=== PATIENT | male | born 1990 | race Caucasian/White ===

== ENCOUNTER 2019-06-12 12:00 | Outpatient (CLI) | payer OTHER, SELFPAY | END 2019-06-12 12:01 | disposition home or self-care (01) | LOC: SLEEP 06-14 12:47 | PROVIDERS: Visit Provider Family Medicine | DX: G47.33 Obstructive sleep apnea (adult) (pediatric) (principal) | CPT/HCPCS: G0399 ==

== ENCOUNTER 2019-09-17 14:16 | Emergency (ER) | payer OTHER, SELFPAY ==
[2019-09-17 14:26] VITALS: BP 146/87; PULSE 68; RESP 18; TEMP 36.9; O2SAT 99; BMI 27.3
--- NOTE | 2019-09-17 14:37 | ECG_ITS ---
Measurements Intervals [place] Rate: 69 P: 5 KS: 146 QRS: 36 QRSD: 108 T: 12 QT: 377 QTc: 404 SINUS RHYTHM NONSPECIFIC T-WAVE ABNORMALITY INTERPRETATION BASED ON A DEFAULT AGE OF 40 YEARS No previous ECG available for comparison Electronically Signed On 09-17-2019 20:06:27 CDT by Priya Saxena M.D. [email or web address]
[2019-09-17 14:48] LABS: Basophils # 0.1 10^3/uL (0.0-0.1); Basophils % 0.8 %; Eosinophils # 0.4 10^3/uL (0.0-0.8); Eosinophils % 6.5 %; Hematocrit 44.5 % (42.0-52.0); Hemoglobin 14.6 g/dL (11.7-16.6); Lymphocytes # 2.4 10^3/uL (0.8-4.8); Lymphocytes % 36.5 %; Mean Corpuscular HGB Conc 32.8 g/dL (30.0-36.0); Mean Corpuscular Volume 88.3 fL (80-94); Mean Platelet Volume 9.2 fL (7.4-10.4); Monocytes # 0.8 10^3/uL (0.2-0.9); Monocytes % 12.7 %; Neutrophils # 2.8 10^3/uL (1.8-7.7); Neutrophils % 43.3 %; Nucleated Red Blood Cells % 0 %; Platelet Count 351 10^3/cmm (130-400); Red Blood Count 5.04 10^6/uL (4.1-5.3); White Blood Count 6.5 10^3/uL (4.0-10.0)
[2019-09-17 15:02] LABS: INR 0.95 (0.8-1.2)
[2019-09-17 15:03] LABS: Partial Thromboplastin Time 31.2 SECONDS (23.9-36.7)
[2019-09-17 15:06] LABS: Alanine Aminotransferase 23 U/L (0-41); Albumin Level 4.6 g/dL (3.5-5.2); Alkaline Phosphatase 91 IU/L (40-130); Anion Gap 15.9 (5-19); Aspartate Amino Transferase 19 U/L (0-40); Blood Urea Nitrogen 12 mg/dL (6-20); Calcium 9.1 mg/dL (8.5-10.5); Carbon Dioxide 24 mmol/L (22-29); Chloride 102 mmol/L (98-107); Globulin 2.8 g/dL (1.3-4.6); Glucose 110 mg/dL (65-115); Magnesium 2.4 mg/dL (1.7-2.3); Osmolality Calculated 283 mOsm/kg (285-295); Potassium 3.9 mmol/L (3.5-5.1); Sodium 138 mmol/L (136-145); Total Bilirubin 0.5 mg/dL (0.15-1.2); Total Protein 7.4 g/dL (6.6-8.7)
[2019-09-17 15:08] LABS: Troponin(5th) Baseline 6 ng/mL (0-15)
[2019-09-17 15:16] VITALS: BP 137/67; PULSE 76; RESP 17; O2SAT 98
--- NOTE | 2019-09-17 15:30 | ED_ITS ---
Documented by User: Simba Doe DO 09/17/19 15:31 HPI - Chest Pain General: Chief Complaint: Chest Pain Stated Complaint: CP, dizzy, blurry vision Time Seen by Provider: 09/17/19 15:29 [facility] ED PFSH: Social History Smoking and tobacco status: never smoked Course Vital Signs: Vital signs: Vital Signs Temperature 98.5 F 09/17/19 14:26 Pulse Rate 76 09/17/19 15:16 Respiratory Rate 18 09/17/19 17:55 Blood Pressure 137/67 09/17/19 15:16 Pulse Oximetry 97 09/17/19 17:55 MDM - Chest Pain Lab Data: Labs: Lab Results 09/17/19 09/17/19 09/17/19 Range/Units 14:42 14:42 14:42 WBC 6.5 (4.0-10.0) 10^3/ uL RBC 5.04 (4.1-5.3) 10^6/u L Hgb 14.6 (11.7-16.6) g/dL Hct 44.5 (42.0-52.0) % MCV 88.3 (80-94) fL MCH 29.0 (28.0-34.0) pg MCHC 32.8 (30.0-36.0) g/dL RDW 12.0 L (12.1-15.1) % Plt Count 351 (130-400) 10^3/c mm MPV 9.2 (7.4-10.4) fL Neut % (Auto) 43.3 % Lymph % (Auto) 36.5 % [place] % (Auto) 12.7 % Eos % (Auto) 6.5 % Baso % (Auto) 0.8 % Neut # (Auto) 2.8 (1.8-7.7) 10^3/u L Lymph # (Auto) 2.4 (0.8-4.8) 10^3/u L [place] # (Auto) 0.8 (0.2-0.9) 10^3/u L Eos # (Auto) 0.4 (0.0-0.8) 10^3/u L Baso # (Auto) 0.1 (0.0-0.1) 10^3/u L Nucleated RBC % (a uto) 0 % Nucleated RBCs # 0.0 /100WBC PT 13.00 (10.5-13.3) SECO NDS INR 0.95 (0.8-1.2) APTT 31.2 (23.9-36.7) SECO NDS Sodium 138 (136-145) mmol/L Potassium 3.9 (3.5-5.1) mmol/L Chloride 102 (98-107) mmol/L Carbon Dioxide 24 (22-29) mmol/L Anion Gap 15.9 (5-19) BUN 12 (6-20) mg/dL Creatinine 0.8 (0.7-1.2) mg/dL GFR Calculation 116.0 (90-130) mL/min Glucose 110 (65-115) mg/dL Calculated Osmolal ity 283 L (285-295) mOsm/k g Calcium 9.1 (8.5-10.5) mg/dL Magnesium 2.4 H (1.7-2.3) mg/dL Total Bilirubin 0.5 (0.15-1.2) mg/dL AST 19 (0-40) U/L ALT 23 (0-41) U/L Alkaline Phosphata se 91 (40-130) IU/L Troponin T Baselin e (0-15) ng/mL Troponin T 120 Min lower [place] (0-15) ng/mL Delta Troponin T (0-10) ABS# Total Protein 7.4 (6.6-8.7) g/dL Albumin 4.6 (3.5-5.2) g/dL Globulin 2.8 (1.3-4.6) g/dL Lipase (13-60) U/L 09/17/19 09/17/19 09/17/19 Range/Units 14:42 16:49 16:49 WBC (4.0-10.0) 10^3/ uL RBC (4.1-5.3) 10^6/u L Hgb (11.7-16.6) g/dL Hct (42.0-52.0) % MCV (80-94) fL MCH (28.0-34.0) pg MCHC (30.0-36.0) g/dL RDW (12.1-15.1) % Plt Count (130-400) 10^3/c mm MPV (7.4-10.4) fL Neut % (Auto) % Lymph % (Auto) % [place] % (Auto) % Eos % (Auto) % Baso % (Auto) % Neut # (Auto) (1.8-7.7) 10^3/u L Lymph # (Auto) (0.8-4.8) 10^3/u L [place] # (Auto) (0.2-0.9) 10^3/u L Eos # (Auto) (0.0-0.8) 10^3/u L Baso # (Auto) (0.0-0.1) 10^3/u L Nucleated RBC % (a uto) % Nucleated RBCs # /100WBC PT (10.5-13.3) SECO NDS INR (0.8-1.2) APTT (23.9-36.7) SECO NDS Sodium (136-145) mmol/L Potassium (3.5-5.1) mmol/L Chloride (98-107) mmol/L Carbon Dioxide (22-29) mmol/L Anion Gap (5-19) BUN (6-20) mg/dL Creatinine (0.7-1.2) mg/dL GFR Calculation (90-130) mL/min Glucose (65-115) mg/dL Calculated Osmolal ity (285-295) mOsm/k g Calcium (8.5-10.5) mg/dL Magnesium (1.7-2.3) mg/dL Total Bilirubin (0.15-1.2) mg/dL AST (0-40) U/L ALT (0-41) U/L Alkaline Phosphata se (40-130) IU/L Troponin T Baselin e 6 (0-15) ng/mL Troponin T 120 Min lower [place] 6.00 (0-15) ng/mL Delta Troponin T 0 (0-10) ABS# Total Protein (6.6-8.7) g/dL Albumin (3.5-5.2) g/dL Globulin (1.3-4.6) g/dL Lipase 27 (13-60) U/L Discharge Plan Discharge Patient Disposition: Home, Self-Care Clinical Impression: Atypical chest pain Abdominal pain Qualifiers: Abdominal location: epigastric Qualified Code(s): R10.13 - Epigastric pain Condition: Stable Prescriptions: [place] 5-325 mg tablet 1 tab PO Q6H PRN (Reason: pain) Qty: 10 RF: 0 Zofran 4 mg tablet 4 mg PO QID PRN (Reason: nausea and vomiting) Qty: 14 RF: 0 Discharge Orders: Discharge Order (Routine); Ordered 09/17/19 Ordered By: Sully Carr Referrals: Primo Fraga MD [Primary Care Provider] - 4-7 days Discharge Diet: Advance as tolerated Discharge Activity: Resume usual activity Patient Instructions: Abdominal Pain (ED) 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[employer] Documented by User: Sully Carr MD 09/17/19 18:24 HPI - Chest Pain General: Chief Complaint: Chest Pain Stated Complaint: CP, dizzy, blurry vision Time Seen by Provider: 09/17/19 15:29 [facility] ED PFSH: Social History Smoking and tobacco status: never smoked Course Vital Signs: Vital signs: Vital Signs Temperature 98.5 F 09/17/19 14:26 Pulse Rate 76 09/17/19 15:16 Respiratory Rate 18 09/17/19 17:55 Blood Pressure 137/67 09/17/19 15:16 Pulse Oximetry 97 09/17/19 17:55 MDM - Chest Pain MDM Narrative: Medical decision making narrative: Patient presents here with abdominal pain along with atypical chest pain. I took patient over from Dr. Thibodeaux and CT scan and ultrasound are both negative. Patient is well-appearing here and he is stable for discharge. He is to follow-up with his primary care doctor in 3 to 5 days and return if worsening. He has no signs of acute coronary cause for his pain or pulmonary embolism. Lab Data: Labs: Lab Results 09/17/19 09/17/1920 Range/Units 14:42 14:42 14:42 WBC 6.5 (4.0-10.0) 10^3/ uL RBC 5.04 (4.1-5.3) 10^6/u L Hgb 14.6 (11.7-16.6) g/dL Hct 44.5 (42.0-52.0) % MCV 88.3 (80-94) fL MCH 29.0 (28.0-34.0) pg MCHC 32.8 (30.0-36.0) g/dL RDW 12.0 L (12.1-15.1) % Plt Count 351 (130-400) 10^3/c mm MPV 9.2 (7.4-10.4) fL Neut % (Auto) 43.3 % Lymph % (Auto) 36.5 % [place] % (Auto) 12.7 % Eos % (Auto) 6.5 % Baso % (Auto) 0.8 % Neut # (Auto) 2.8 (1.8-7.7) 10^3/u L Lymph # (Auto) 2.4 (0.8-4.8) 10^3/u L [place] # (Auto) 0.8 (0.2-0.9) 10^3/u L Eos # (Auto) 0.4 (0.0-0.8) 10^3/u L Baso # (Auto) 0.1 (0.0-0.1) 10^3/u L Nucleated RBC % (a uto) 0 % Nucleated RBCs # 0.0 /100WBC PT 13.00 (10.5-13.3) SECO NDS INR 0.95 (0.8-1.2) APTT 31.2 (23.9-36.7) SECO NDS Sodium 138 (136-145) mmol/L Potassium 3.9 (3.5-5.1) mmol/L Chloride 102 (98-107) mmol/L Carbon Dioxide 24 (22-29) mmol/L Anion Gap 15.9 (5-19) BUN 12 (6-20) mg/dL Creatinine 0.8 (0.7-1.2) mg/dL GFR Calculation 116.0 (90-130) mL/min Glucose 110 (65-115) mg/dL Calculated Osmolal ity 283 L (285-295) mOsm/k g Calcium 9.1 (8.5-10.5) mg/dL Magnesium 2.4 H (1.7-2.3) mg/dL Total Bilirubin 0.5 (0.15-1.2) mg/dL AST 19 (0-40) U/L ALT 23 (0-41) U/L Alkaline Phosphata se 91 (40-130) IU/L Troponin T Baselin e (0-15) ng/mL Troponin T 120 Min lower [place] (0-15) ng/mL Delta Troponin T (0-10) ABS# Total Protein 7.4 (6.6-8.7) g/dL Albumin 4.6 (3.5-5.2) g/dL Globulin 2.8 (1.3-4.6) g/dL Lipase (13-60) U/L 09/17/19 09/17/19 09/17/19 Range/Units 14:42 16:49 16:49 WBC (4.0-10.0) 10^3/ uL RBC (4.1-5.3) 10^6/u L Hgb (11.7-16.6) g/dL Hct (42.0-52.0) % MCV (80-94) fL MCH (28.0-34.0) pg MCHC (30.0-36.0) g/dL RDW (12.1-15.1) % Plt Count (130-400) 10^3/c mm MPV (7.4-10.4) fL Neut % (Auto) % Lymph % (Auto) % [place] % (Auto) % Eos % (Auto) % Baso % (Auto) % Neut # (Auto) (1.8-7.7) 10^3/u L Lymph # (Auto) (0.8-4.8) 10^3/u L [place] # (Auto) (0.2-0.9) 10^3/u L Eos # (Auto) (0.0-0.8) 10^3/u L Baso # (Auto) (0.0-0.1) 10^3/u L Nucleated RBC % (a uto) % Nucleated RBCs # /100WBC PT (10.5-13.3) SECO NDS INR (0.8-1.2) APTT (23.9-36.7) SECO NDS Sodium (136-145) mmol/L Potassium (3.5-5.1) mmol/L Chloride (98-107) mmol/L Carbon Dioxide (22-29) mmol/L Anion Gap (5-19) BUN (6-20) mg/dL Creatinine (0.7-1.2) mg/dL GFR Calculation (90-130) mL/min Glucose (65-115) mg/dL Calculated Osmolal ity (285-295) mOsm/k g Calcium (8.5-10.5) mg/dL Magnesium (1.7-2.3) mg/dL Total Bilirubin (0.15-1.2) mg/dL AST (0-40) U/L ALT (0-41) U/L Alkaline Phosphata se (40-130) IU/L Troponin T Baselin e 6 (0-15) ng/mL Troponin T 120 Min lower [place] 6.00 (0-15) ng/mL Delta Troponin T 0 (0-10) ABS# Total Protein (6.6-8.7) g/dL Albumin (3.5-5.2) g/dL Globulin (1.3-4.6) g/dL Lipase 27 (13-60) U/L Imaging Data^: US: Radiologist's impression: [id number] Order #: [id number] Report Status: Finalized Reason: [place] [address] Ultrasound Report Signed Patient: Matthew Mehta Unit #: [id number] : 1990 Age/Sex: 29 / M ADM Date: 09/17/19 Loc: ER Room/Bed: Attending Dr: Ordering Provider/Ordering MD: Simba Doe DO Date of Service: 09/17/19 Procedure(s): US gall bladder [id number] Accession Number(s): [id number] Report Number: [id number] PROCEDURE INFORMATION: Exam: US Abdomen Limited, Right Upper Quadrant Exam date and time: 09/17/2019 5:25 PM Age: 29 years old Clinical indication: Abdominal pain; Epigastric; Additional info: Abd pain TECHNIQUE: Imaging protocol: Real-time ultrasound of the abdomen with image documentation. Examination was focused on the right upper quadrant. COMPARISON: No relevant prior studies available. FINDINGS: Liver: The liver is mildly hyperechoic and of normal size measuring 14.3 cm. Gallbladder: 4 mm gallbladder polyp. No gallstones. The gallbladder wall thickness is 1.7 mm. Common bile duct: CBD 3.1 mm. Pancreas: Visualized pancreas is unremarkable. Right kidney: Normal. No mass. No hydronephrosis. Intraperitoneal space: No ascites. US/US gall bladder [id number] IMPRESSION: 1. Small gallbladder polyp. No evidence for cholecystitis. 2. Mildly hyperechoic liver likely indicates fatty infiltration. CT Abd/Pel: Attestation: I personally reviewed and interpreted this imaging study as follows: Radiologist's impression: [place] [address] CT Scan Report Signed Patient: Matthew Mehta Unit #: [id number] : 1990 Age/Sex: 29 / M ADM Date: 09/17/19 Loc: ER Room/Bed: Attending Dr: Ordering Provider/Ordering MD: Simba Doe DO Date of Service: 09/17/19 Procedure(s): CT abdomen pelvis w con* [id number] Accession Number(s): [id number] Report Number: [id number] PROCEDURE INFORMATION: Exam: CT Abdomen And Pelvis With Contrast Exam date and time: 09/17/2019 4:32 PM Age: 29 years old Clinical indication: Abdominal pain; Epigastric; Additional info: Abd pain TECHNIQUE: Imaging protocol: Computed tomography of the abdomen and pelvis with intravenous contrast. Radiation optimization: All CT scans at this facility use at least one of these dose optimization techniques: automated exposure control; mA and/or kV adjustment per patient size (includes targeted exams where dose is matched to clinical indication); or iterative reconstruction. Contrast material: OMNI 300; Contrast volume: 95 ml; Contrast route: LT AC; COMPARISON: US gall bladder [id number] 09/17/2019 5:15 PM RADIATION DOSE METRICS: Total DLP: 754.22 mGy-cm FINDINGS: Liver: Normal. No mass. Gallbladder and bile ducts: Normal. No calcified stones. No ductal dilation. Pancreas: Normal. No ductal dilation. Spleen: Normal. No splenomegaly. Adrenals: Normal. No mass. Kidneys and ureters: Normal. No hydronephrosis. Stomach and bowel: Small scattered air-fluid levels within the proximal to mid small bowel. No transition point or obstruction. No visible wall thickening. The colon and stomach are unremarkable. Appendix: The appendix is normal. Intraperitoneal space: Unremarkable. No free air. No significant fluid collection. Vasculature: Unremarkable. No abdominal aortic aneurysm. Lymph nodes: Unremarkable. No enlarged lymph nodes. Bladder: Unremarkable as visualized. Reproductive: Unremarkable as visualized. Bones/joints: Chronic bilateral L5 pars fractures with minimal subluxation. Soft tissues: Unremarkable. CT/CT abdomen pelvis w con* [id number] IMPRESSION: 1. Small air-fluid levels in the small bowel could represent mild ileus or enteritis. 2. Otherwise no acute abnormality identified in the abdomen or pelvis. Discharge Plan Discharge Patient Disposition: Home, Self-Care Clinical Impression: Atypical chest pain Abdominal pain Qualifiers: Abdominal location: epigastric Qualified Code(s): R10.13 - Epigastric pain Condition: Stable Prescriptions: [place] 5-325 mg tablet 1 tab PO Q6H PRN (Reason: pain) Qty: 10 RF: 0 Zofran 4 mg tablet 4 mg PO QID PRN (Reason: nausea and vomiting) Qty: 14 RF: 0 Discharge Orders: Discharge Order (Routine); Ordered 09/17/19 Ordered By: Sully Carr Referrals: Primo Fraga MD [Primary Care Provider] - 4-7 days Discharge Diet: Advance as tolerated Discharge Activity: Resume usual activity Patient Instructions: Abdominal Pain (ED) 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
--- NOTE | 2019-09-17 16:19 | CTR_ITS ---
PROCEDURE INFORMATION: Exam: CT Abdomen And Pelvis With Contrast Exam date and time: 09/17/2019 4:32 PM Age: 29 years old Clinical indication: Abdominal pain; Epigastric; Additional info: Abd pain TECHNIQUE: Imaging protocol: Computed tomography of the abdomen and pelvis with intravenous contrast. Radiation optimization: All CT scans at this facility use at least one of these dose optimization techniques: automated exposure control; mA and/or kV adjustment per patient size (includes targeted exams where dose is matched to clinical indication); or iterative reconstruction. Contrast material: OMNI 300; Contrast volume: 95 ml; Contrast route: LT AC; COMPARISON: US gall bladder [id number] 09/17/2019 5:15 PM RADIATION DOSE METRICS: Total DLP: 754.22 mGy-cm FINDINGS: Liver: Normal. No mass. Gallbladder and bile ducts: Normal. No calcified stones. No ductal dilation. Pancreas: Normal. No ductal dilation. Spleen: Normal. No splenomegaly. Adrenals: Normal. No mass. Kidneys and ureters: Normal. No hydronephrosis. Stomach and bowel: Small scattered air-fluid levels within the proximal to mid small bowel. No transition point or obstruction. No visible wall thickening. The colon and stomach are unremarkable. Appendix: The appendix is normal. Intraperitoneal space: Unremarkable. No free air. No significant fluid collection. Vasculature: Unremarkable. No abdominal aortic aneurysm. Lymph nodes: Unremarkable. No enlarged lymph nodes. Bladder: Unremarkable as visualized. Reproductive: Unremarkable as visualized. Bones/joints: Chronic bilateral L5 pars fractures with minimal subluxation. Soft tissues: Unremarkable. CT/CT abdomen pelvis w con* [id number] IMPRESSION: 1. Small air-fluid levels in the small bowel could represent mild ileus or enteritis. 2. Otherwise no acute abnormality identified in the abdomen or pelvis. Radiation Dose CTDIVOL = (mGy): DLP = 754.22 (mGy-cm)
--- NOTE | 2019-09-17 16:19 | USR_ITS ---
PROCEDURE INFORMATION: Exam: US Abdomen Limited, Right Upper Quadrant Exam date and time: 09/17/2019 5:25 PM Age: 29 years old Clinical indication: Abdominal pain; Epigastric; Additional info: Abd pain TECHNIQUE: Imaging protocol: Real-time ultrasound of the abdomen with image documentation. Examination was focused on the right upper quadrant. COMPARISON: No relevant prior studies available. FINDINGS: Liver: The liver is mildly hyperechoic and of normal size measuring 14.3 cm. Gallbladder: 4 mm gallbladder polyp. No gallstones. The gallbladder wall thickness is 1.7 mm. Common bile duct: CBD 3.1 mm. Pancreas: Visualized pancreas is unremarkable. Right kidney: Normal. No mass. No hydronephrosis. Intraperitoneal space: No ascites. US/US gall bladder [id number] IMPRESSION: 1. Small gallbladder polyp. No evidence for cholecystitis. 2. Mildly hyperechoic liver likely indicates fatty infiltration.
[2019-09-17 17:14] LABS: Lipase 27 U/L (13-60)
[2019-09-17 17:15] LABS: Troponin 5 2HR Delta 0 ABS# (0-10)
[2019-09-17] MEDS: iohexol 300 mg/mL 100 mL Btl IV (17:39)
[2019-09-17 17:55] VITALS: RESP 18; O2SAT 97
[2019-09-17] MEDS: morphine 4 mg/mL SDV 1 mL IVP (17:55)
[2019-09-17 18:47] VITALS: BP 154/74; PULSE 74; RESP 18; O2SAT 98
--- NOTE | 2019-09-17 20:37 | ECG_ITS ---
Measurements Intervals [place] Rate: 55 P: 6 IN: 160 QRS: 38 QRSD: 100 T: 12 QT: 380 QTc: 364 SINUS BRADYCARDIA NONSPECIFIC T-WAVE ABNORMALITY No previous ECG available for comparison Electronically Signed On 09-17-2019 20:17:32 CDT by Priya Saxena M.D. [email or web address]
== END 2019-09-17 18:50 | disposition home or self-care (01) ==
PROVIDERS: Emergency Medicine; Family Medicine; Emergency Provider Emergency Medicine; PCP Family Medicine
DX: R07.89 Other chest pain (principal); R10.13 Epigastric pain
CPT/HCPCS: 12345; 36415; 74177; 76705; 80053; 83690; 83735; 84484; 85025; 85610; 85730; 93005; 96374; 96375; 99281; 99284; J2270; Q9967

== ENCOUNTER → 2020-05-17 12:31 | Outpatient (BNVA) | payer OTHER, SELFPAY | PROVIDERS: PCP Family Medicine; Visit Provider Nurse Practitioner Family | DX: J02.9 Acute pharyngitis, unspecified (principal); J06.9 Acute upper respiratory infection, unspecified | CPT/HCPCS: 87071; 87880 ==

== ENCOUNTER 2021-02-28 07:50 | Emergency (ER) | payer OTHER, SELFPAY ==
[2021-02-28 07:58] VITALS: BP 124/83; PULSE 79; RESP 17; TEMP 36.8; O2SAT 97; BMI 30.1
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
[2021-02-28] MEDS: acetaminophen 500 mg Tablet 1000 MG PO (08:42)
== END 2021-02-28 10:36 | disposition home or self-care (01) ==
PROVIDERS: Emergency Provider Physician Assistant; PCP Family Medicine
DX: S80.02XA Contusion of left knee, initial encounter (principal); S80.01XA Contusion of right knee, initial encounter; V53.5XXA Driver of pick-up truck or van injured in collision with car, pick-up truck or van in traffic accident, initial encounter
CPT/HCPCS: 70450; 72125; 73562; 99283

== ENCOUNTER → 2022-03-18 13:19 | Outpatient (BNVA) | payer OTHER, SELFPAY | PROVIDERS: PCP Family Medicine; Visit Provider Nurse Practitioner Family | DX: R68.89 Other general symptoms and signs (principal); B34.9 Viral infection, unspecified | CPT/HCPCS: 87071; 87400; 87426; 87880 ==

== ENCOUNTER → 2025-03-27 09:59 | Outpatient (BNVA) | payer OTHER, SELFPAY | PROVIDERS: PCP Family Medicine; Visit Provider Nurse Practitioner | DX: R50.9 Fever, unspecified (principal); J02.9 Acute pharyngitis, unspecified | CPT/HCPCS: 87071; 87400; 87426; 87880 ==